=== PATIENT | female | born 1985 | race African-American/Black ===

== ENCOUNTER 2017-06-10 11:56 | Emergency (ER) | payer OTHER ==
[~2017-06-10] VITALS: Ht 157.5 cm; Wt 90.7 kg
[~2017-06-10 11:56] MED LIST: A.E.R PADS1 JAR; AMOXICILLIN 50500 MG PO; AMOXICILLIN500 M1 PO; APAP500; BACTRIM DS TAB1 EACH PO; DIFLUCAN150 MG PO; DOXYCYCLINE 10100 MG PO; FLAGYL500 MG PO; IBUPROFEN 600600 M1; IRON236 MG; KEFLEX500 MG PO; LANOLIN56 GM; NOHOMEMEDICATIONS; NORCO 5-325 TA1 EACH; NORCO 5-325 TA1 EACH PO; PENICILLIN VK500 M1 PO; PREDNISONE 10 M10 M1 PO; PRENATAL; ZANTAC 150MG T150 M1 PO; ZOFRAN ODT4 MG PO
[2017-06-10] MEDS ORDERED: PENICILLIN V P500 MG PO (12:46)
[2017-06-10] MEDS ORDERED: FLONASE 0.05%50 MCG NASAL (12:46)
[2017-06-10 13:27] VITALS: BP 124/75
== END 2017-06-10 13:28 | disposition home or self-care (01) ==
LOC: ER 11:56
DX: K02.9 Dental caries, unspecified (principal); J32.9 Chronic sinusitis, unspecified; F10.99 Alcohol use, unspecified with unspecified alcohol-induced disorder

== ENCOUNTER → 2017-07-20 | Outpatient (CLI) | payer BC ==
[~2017-07-20] MED LIST changes: +FLONASE 0.05%50 MCG NASAL; +PENICILLIN V P500 MG PO
== END ==
LOC: RAD 10:43
DX: R92.8 Other abnormal and inconclusive findings on diagnostic imaging of breast (principal); N64.52 Nipple discharge

== ENCOUNTER 2017-12-01 16:50 | Emergency (ER) | payer BC ==
[~2017-12-01] VITALS: Ht 157.5 cm; Wt 100.7 kg
[2017-12-01 17:37] LABS: HEMATOCRIT 28.9 % (37.0-47.0); HEMOGLOBIN 8.4 gm/dL (12.0-15.0); MCH 18.7 pg (26.0-34.0); MCHC 29.2 g/dL (28.0-37.0); MCV 64.1 fL (80.0-100.0); PLATELET COUNT 365 thou/uL (150-400); RDW 24.6 % (10.5-14.5); WBC 9.5 thou/uL (4.0-11.0)
[2017-12-01 17:39] LABS: CALCIUM 9.2 mg/dL (8.5-10.1); POTASSIUM 3.6 mmol/L (3.5-5.1)
[2017-12-01 17:59] LABS: ANISOCYTOSIS 2+
[2017-12-01 18:00] LABS: HYPOCHROMASIA 2+; MICROCYTES 2+; POLYCHROMASIA OCCASIONAL
[2017-12-01 18:01] LABS: POIKILOCYTOSIS SLIGHT
[2017-12-01 19:09] VITALS: BP 132/68
== END 2017-12-01 19:10 | disposition home or self-care (01) ==
LOC: ER 16:50
PROVIDERS: Nurse Practitioner Family
DX: D64.9 Anemia, unspecified (principal)

== ENCOUNTER 2018-03-17 15:44 | Emergency (ER) | payer BC ==
[~2018-03-17] VITALS: Ht 157.5 cm; Wt 105.2 kg
[2018-03-17] MEDS ORDERED: IRON325 PO (16:12)
[2018-03-17 17:06] LABS: ABSOLUTE NEUTROPHILS 5.2 thou/uL (1.4-8.2); BASOPHILS 1.8 % (0.0-2.0); EOSINOPHILS 0.8 % (0.0-3.0); HEMATOCRIT 33.6 % (37.0-47.0); HEMOGLOBIN 10.6 gm/dL (12.0-15.0); LYMPHOCYTES 27.8 % (24.0-44.0); MCH 24.3 pg (26.0-34.0); MCHC 31.6 g/dL (28.0-37.0); MCV 76.9 fL (80.0-100.0); MONOCYTES 4.5 % (1.0-8.0); PLATELET COUNT 270 thou/uL (150-400); POLYS 65.1 % (36.0-66.0); RBC 4.37 mil/uL (4.20-5.00); RDW 18.3 % (10.5-14.5); WBC 7.9 thou/uL (4.0-11.0)
[2018-03-17 17:11] LABS: CALCIUM 8.7 mg/dL (8.5-10.1); CREATININE 1.1 mg/dL (0.6-1.0); POTASSIUM 3.9 mmol/L (3.5-5.1)
[2018-03-17] MEDS ORDERED: KEFLEX500 M1 PO (18:00)
[2018-03-17] MEDS ORDERED: NAPROSYN500 MG PO (18:00)
[2018-03-17 18:32] VITALS: BP 122/74
[2018-03-17 19:10] LABS: ANISOCYTOSIS 1+
== END 2018-03-17 18:33 | disposition home or self-care (01) ==
LOC: ER 15:44
PROVIDERS: Physician Assistant
DX: N61.0 Mastitis without abscess (principal)

== ENCOUNTER → 2018-03-22 | Outpatient (CLI) | payer BC ==
[~2018-03-22] VITALS: Ht 157.5 cm; Wt 105.2 kg
[~2018-03-22] MED LIST changes: +IRON325 PO; +KEFLEX500 M1 PO; +NAPROSYN500 MG PO
[2018-03-22 09:32] VITALS: BP 129/76
[2018-03-22 11:31] VITALS: BP 115/63
[2018-03-22 12:57] VITALS: BP 129/76
== END ==
LOC: OPONC 03-02 01:40
DX: D50.0 Iron deficiency anemia secondary to blood loss (chronic) (principal); N92.0 Excessive and frequent menstruation with regular cycle
CPT/HCPCS: 95000

== ENCOUNTER → 2018-03-28 | Outpatient (CLI) | payer BC ==
[2018-03-28 11:45] VITALS: BP 135/72
[2018-03-28 12:25] VITALS: BP 110/53
== END ==
LOC: OPONC 01:10
DX: D50.0 Iron deficiency anemia secondary to blood loss (chronic) (principal); N92.0 Excessive and frequent menstruation with regular cycle
CPT/HCPCS: 95000

== ENCOUNTER 2018-11-26 19:10 | Emergency (ER) | payer OTHER ==
[~2018-11-26] VITALS: Ht 160 cm; Wt 107.5 kg
[2018-11-26 20:37] VITALS: BP 132/74
== END 2018-11-26 20:58 | disposition home or self-care (01) ==
LOC: ER 19:10
DX: N76.4 Abscess of vulva (principal); Z86.2 Personal history of diseases of the blood and blood-forming organs and certain disorders involving the immune mechanism

== ENCOUNTER 2019-02-16 11:01 | Emergency (ER) | payer OTHER ==
[~2019-02-16] VITALS: Ht 157.5 cm; Wt 97.5 kg
[2019-02-16 11:30] LABS: URINE BILIRUBIN NEGATIVE (Negative); URINE BLOOD 3+ (Negative); URINE CLARITY CLEAR; URINE COLOR YELLOW; URINE GLUCOSE-RANDOM* NEGATIVE (Negative); URINE KETONES NEGATIVE (Negative); URINE LEUKOCYTES-REFLEX NEGATIVE (Negative); URINE NITRITE-REFLEX NEGATIVE (Negative); URINE PROTEIN (DIPSTICK) TRACE (Negative); URINE SPECIFIC GRAVITY >= 1.030 (1.005-1.035)
[2019-02-16 11:47] LABS: CASTS None Seen /LPF (None Seen); CRYSTALS None Seen /LPF (None Seen); SQUAMOUS 4-10 Moderate /LPF (0-3)
[2019-02-16 11:48] LABS: BACTERIA-REFLEX 1-9 Few /HPF (None Seen); URINE RBC 0-2 Rare /HPF (0-2); URINE WBC-REFLEX 0-5 Rare /HPF (0-5)
[2019-02-16] MEDS ORDERED: BACTRIM DS TAB1 EACH PO (13:14)
[2019-02-16 13:30] VITALS: BP 139/85
== END 2019-02-16 13:30 | disposition home or self-care (01) ==
LOC: ER 11:01
PROVIDERS: Physician Assistant
DX: L73.9 Follicular disorder, unspecified (principal); Z20.2 Contact with and (suspected) exposure to infections with a predominantly sexual mode of transmission; Z86.2 Personal history of diseases of the blood and blood-forming organs and certain disorders involving the immune mechanism

== ENCOUNTER 2019-06-19 21:13 | Emergency (ER) | payer OTHER ==
[~2019-06-19] VITALS: Ht 157.5 cm; Wt 88.5 kg
[2019-06-19 21:54] LABS: URINE BILIRUBIN NEGATIVE (Negative); URINE BLOOD NEGATIVE (Negative); URINE CLARITY CLEAR; URINE COLOR YELLOW; URINE GLUCOSE-RANDOM* NEGATIVE (Negative); URINE KETONES NEGATIVE (Negative); URINE LEUKOCYTES-REFLEX NEGATIVE (Negative); URINE NITRITE-REFLEX NEGATIVE (Negative); URINE PROTEIN (DIPSTICK) NEGATIVE (Negative); URINE SPECIFIC GRAVITY >= 1.030 (1.005-1.035); URINE UROBILINOGEN 0.2 E.U./dl (0.2-1.0)
[2019-06-19] MEDS ORDERED: FLEXERIL PO ×2 (22:34→22:37)
[2019-06-19] MEDS ORDERED: MOBIC7.5 MG PO ×2 (22:34→22:37)
[2019-06-19] MEDS ORDERED: PREDNISONE 10 M10 MG PO (22:34)
[2019-06-19 23:05] VITALS: BP 122/64
== END 2019-06-19 23:05 | disposition home or self-care (01) ==
LOC: ER 21:13
PROVIDERS: Physician Assistant
DX: M54.31 Sciatica, right side (principal); E66.01 Morbid (severe) obesity due to excess calories; Z68.35 Body mass index [BMI] 35.0-35.9, adult; Z86.2 Personal history of diseases of the blood and blood-forming organs and certain disorders involving the immune mechanism

== ENCOUNTER 2019-08-02 14:02 | Emergency (ER) | payer OTHER ==
[~2019-08-02] VITALS: Ht 157.5 cm; Wt 86.2 kg
[~2019-08-02 14:02] MED LIST changes: +FLEXERIL PO; +MOBIC7.5 MG PO; +PREDNISONE 10 M10 MG PO
[2019-08-02 14:03] VITALS: BP 128/83
[2019-08-02] MEDS ORDERED: ERYTHROMYCIN E3.5 G3 OPHTHALMIC (15:47)
[2019-08-02] MEDS ORDERED: IBUPROFEN 600600 M1 PO (15:47)
[2019-08-02] MEDS ORDERED: NORCO 5-325 TA1 EAC1 PO (15:47)
== END 2019-08-02 16:41 | disposition home or self-care (01) ==
LOC: ER 14:02
DX: S05.8X1A Other injuries of right eye and orbit, initial encounter (principal); Z86.2 Personal history of diseases of the blood and blood-forming organs and certain disorders involving the immune mechanism; X10.2XXA Contact with fats and cooking oils, initial encounter; Y93.G3 Activity, cooking and baking; Y99.0 Civilian activity done for income or pay

== ENCOUNTER 2020-12-29 15:17 | Emergency (ER) | payer OTHER ==
[~2020-12-29] VITALS: Ht 157.5 cm; Wt 74.8 kg
[~2020-12-29 15:17] MED LIST changes: +ERYTHROMYCIN E3.5 G3 OPHTHALMIC; +IBUPROFEN 600600 M1 PO; +NORCO 5-325 TA1 EAC1 PO
[2020-12-29] MEDS ORDERED: KEFLEX250 MG PO (16:06)
[2020-12-29 16:32] VITALS: BP 118/67
== END 2020-12-29 16:32 | disposition home or self-care (01) ==
LOC: ER 15:17
DX: N76.4 Abscess of vulva (principal); N76.2 Acute vulvitis; Z87.42 Personal history of other diseases of the female genital tract; Z79.2 Long term (current) use of antibiotics; Z79.899 Other long term (current) drug therapy; Z87.891 Personal history of nicotine dependence

== ENCOUNTER → 2021-05-28 | Outpatient (CLI) | payer BC, OTHER ==
[~2021-05-28] MED LIST changes: +KEFLEX250 MG PO
== END ==
LOC: BC 10:59
PROVIDERS: ATTEND Nurse Practitioner
DX: N63.11 Unspecified lump in the right breast, upper outer quadrant (principal); R60.0 Localized edema; N63.42 Unspecified lump in left breast, subareolar; N64.52 Nipple discharge

== ENCOUNTER → 2021-08-03 | Outpatient (CLI) | payer BC, OTHER | LOC: ULTRA 15:54 | PROVIDERS: ATTEND Surgery | DX: N61.1 Abscess of the breast and nipple (principal); R59.0 Localized enlarged lymph nodes ==

== ENCOUNTER 2021-09-06 13:44 | Emergency (ER) | payer BC, OTHER ==
[2021-09-06 13:47] VITALS: BP 134/90
== END 2021-09-06 14:03 | disposition home or self-care (01) ==
LOC: ER 13:44
DX: U07.1 COVID-19 (principal); Z87.891 Personal history of nicotine dependence